=== PATIENT | female | born 1960 | race American Indian/Alaskan Native ===

== ENCOUNTER 2017-08-13 22:50 | Emergency (ER) | payer BC, OTHER ==
[2017-08-14] MEDS ORDERED: ULTRAM PO ONE (02:20)
[2017-08-14] MEDS ORDERED: MOTRIN PO ONE (02:20)
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
[2017-08-14 04:07] VITALS: BP 138/81
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
== END 2017-08-14 04:08 | disposition home or self-care (01) ==
LOC: ED 22:50
DX: S16.1XXA Strain of muscle, fascia and tendon at neck level, initial encounter (principal); E78.00 Pure hypercholesterolemia, unspecified; V89.2XXA Person injured in unspecified motor-vehicle accident, traffic, initial encounter; Y93.89 Activity, other specified; Y92.89 Other specified places as the place of occurrence of the external cause; Y99.8 Other external cause status
CPT/HCPCS: 72040; 99283